=== PATIENT | female | born 1935 | race Caucasian/White ===

== ENCOUNTER → 2016-12-19 | Outpatient (CLI) | payer OTHER ==
[2016-12-19 13:35] LABS: CHOLESTEROL/HDL RATIO 4.7
== END | disposition home or self-care (01) ==
LOC: C.LABMFLN 08:23
PROVIDERS: ATTEND Family Medicine
DX: Z00.00 Encounter for general adult medical examination without abnormal findings (principal); R73.09 Other abnormal glucose; E78.5 Hyperlipidemia, unspecified; M85.80 Other specified disorders of bone density and structure, unspecified site

== ENCOUNTER 2017-09-06 06:08 | Inpatient (IN) | payer OTHER ==
[2017-08-08 13:01] VITALS: Ht 162.6 cm; Wt 96.2 kg
--- NOTE | 2017-08-08 13:39 | PAT Medication Instructions ---
Service Date Aug 08, 2017. Current Home Medication List Calcium Carbonate-Vitamin D (Calcium + D), 1 TAB PO QAM Fenofibrate (Tricor), 54 MG PO QAM Fish Oil ([place]-3), 1 CAP PO QAM Red Yeast Rice Extract (Red Yeast Rice), 1 TAB PEG QAM Medication Instructions For Your Scheduled Surgery - Hold the following medications 2 weeks prior to surgery: Fish Oil ([place]-3), 1 CAP PO QAM Red Yeast Rice Extract (Red Yeast Rice), 1 TAB PEG QAM - Hold the following medications 48 hours prior to surgery: Fenofibrate (Tricor), 54 MG PO QAM-- skip it the day of surgery and the day before - Hold the following medications the morning of surgery: Calcium Carbonate-Vitamin D (Calcium + D), 1 TAB PO QAM If you have any questions please call us at [phone] or [phone] or [phone]
[2017-08-08 15:21] LABS: BASO % 0.6 %; BASO ABS # 0.06 K/uL (0-0.2); EOS % 1.5 %; EOS ABS # 0.14 K/uL (0-0.5); HEMATOCRIT 44.6 % (37-47); IG# 0.03 K/uL (0.00-0.02); LYMPH % 23.4 %; LYMPH ABS # 2.25 K/uL (1.2-3.4); MEAN CELL VOLUME 89.7 fL (80-100); MEAN CORPUSCULAR HEMOGLOBIN 30.2 pg (25-34); MEAN CORPUSCULAR HGB CONC 33.6 g/dl (32-36); MEAN PLATELET VOLUME 11.1 fL (7.4-10.4); MONO % 7.8 %; MONO ABS # 0.75 K/uL (0.11-0.59); NEUT % 66.4 %; NEUT ABS # 6.37 K/uL (1.4-6.5); PLATELET COUNT 303 K/uL (130-400); RED CELL DISTRIBUTION WIDTH CV 14.1 % (11.5-14.5); RED CELL DISTRIBUTION WIDTH SD 46.1 fL (36.4-46.3)
[2017-08-08 15:37] LABS: PTT PATIENT 24.7 SECONDS (21.0-31.0)
--- NOTE | 2017-08-08 15:38 | DIAGNOSTIC IMAGING REPORT ---
CHEST 2 VIEWS ROUTINE HISTORY: Preop. COMPARISON: None. FINDINGS: The lungs are clear. Cardiac silhouette is normal in size. No pleural effusions. No pneumothorax. IMPRESSION: No acute process. Electronically signed by: Antonio Yang M.D. 08/08/2017 3:37 PM Dictated Date/Time: 08/08/2017 2:25 PM
[2017-08-08 16:00] LABS: ALBUMIN 3.6 gm/dl (3.4-5.0); CALCIUM 9.9 mg/dl (8.5-10.1); CREATININE 1.06 mg/dl (0.60-1.20); POTASSIUM 3.8 mmol/L (3.5-5.1)
[2017-08-09 05:55] LABS: HEMOGLOBIN A1C 5.7 % (4.5-5.6)
--- NOTE | 2017-09-05 19:26 | HISTORY & PHYSICAL EXAMINATION ---
DATE OF ADMISSION: 09/06/2017 CHIEF COMPLAINT: Chronic left knee pain. HISTORY OF PRESENT ILLNESS: This is an 81-year-old female patient of Dr. Randall'pantera complaining of chronic left knee pain, longstanding, now progressively getting worse. The patient has been diagnosed with end-stage osteoarthritis per clinical and radiographic exams. The patient has failed conservative treatment including Tylenol, anti-inflammatories, narcotics, steroids, fish oil, and intra-articular injections. She has also failed the use of a sleeve and a cane as needed. The patient has increased pain with weightbearing activities and her pain does interfere with her activities of daily living. PAST MEDICAL HISTORY: Osteoarthritis, acid reflux. SOCIAL HISTORY: Nonsmoker, nondrinker. PAST SURGICAL HISTORY: Hysterectomy. REVIEW OF SYSTEMS: The patient complains of chronic left knee pain, otherwise denies any shortness of breath, chest pain, nausea, vomiting, or any joint complaints. FAMILY HISTORY: Noncontributory. MEDICATIONS: 1. Calcium 600+D daily, fenofibrate 54 mg daily, fish oil 360 mg/1200 mg capsule daily. 2. Percocet as needed. 3. Red yeast rice 600 mg daily. ALLERGIES: No known drug allergies. PHYSICAL EXAMINATION: GENERAL: Well-developed, well-nourished 81-year-old female in no acute distress. She is alert and oriented x3 and pleasant. HEENT: Normocephalic, atraumatic. Extraocular motions are intact. Pupils are equal and reactive to light. HEART: Regular rate and rhythm, no murmurs appreciated. LUNGS: Clear. ABDOMEN: Soft, nontender, bowel sounds present. EXTREMITIES: Left knee reveals a valgus deformity. She has a limited range of motion of 0-110 degrees. She has a neutral alignment. She has medial and lateral joint line tenderness with a positive mild effusion. The patient has 4/5 strength. NEUROLOGIC: Neurovascularly, she is intact in her left lower extremity. DIAGNOSES: Left knee end-stage osteoarthritis, sciatica, acid reflux. PLAN: The patient was advised of her diagnosis. Indications, risks, benefits, postop course have all been reviewed. The patient wished to proceed with a left total knee arthroplasty. Necessary consent forms, preoperative testing, and clearances will be obtained.
[~2017-09-06] VITALS: Ht 162.6 cm; Wt 96.2 kg
[2017-09-06] VITALS (8 sets, daily range): BP systolic 127–170; BP diastolic 71–83; PULSE 65–77; TEMP 36.4–36.6; O2SAT 93–100
[~2017-09-06 06:08] MED LIST: ACETAMINOPHEN 500 MG TAB PO SCH; AMLO-110 PO; CALC600T9 PO; CEFAZOLIN 2000MG IV PUSH 15 ML IV SCH; CeleBREX 200 MG CAP PO SCH; DEXAMETHASONE 4 MG TAB PO SCH; FAMOTIDINE 20 MG TAB PO SCH; FENO54TA PO; GABAPENTIN 300 MG CAP PO SCH; LACTATED RINGER'S 1000ML 1,000 ML IV SCH; LACTATED RINGER'S 1000ML 500 ML IV SCH; METOCLOPRAMIDE HCL 10 MG TAB PO SCH; OMEG10007 PO; REDCAP2 PEG; ROPIVACAINE 5MG/ML 30 ML 150 MG, BUPIVACAINE 0.5% MPF INJ 30 ML, EpINEphrine HCL INJ 0.... INFIL SCH
[2017-09-06] MEDS ORDERED: BUPIVACAINE 0.25% 30 ML VIAL ONE (06:26)
[2017-09-06] MEDS ORDERED: BUPIVACAINE 0.5 % 5 MG/1 ML PF 10ML VIAL ONE (06:26)
[2017-09-06] MEDS: TRANEXAMIC ACID INJ 1,000 MG x 2 Bags IV SCH ×4 (06:30→08:06)
[2017-09-06] MEDS ORDERED: ORTHO JOINT ANESTHETIC ONE (07:10)
[2017-09-06] MEDS ORDERED: POVIDONE-IODINE OP SOLN 30 ML BTL ONE (07:10)
[2017-09-06] MEDS ORDERED: BACITRACIN 50000 UNIT VIAL ONE (07:11)
[2017-09-06] MEDS ORDERED: MIDAZOLAM HCL 1 MG/ML 2ML VIAL ONE (07:19)
[2017-09-06] MEDS ORDERED: FENTANYL CITRATE INJ 50 MCG/1 ML 2 ML VIAL ONE (07:20)
[2017-09-06] MEDS ORDERED: EpHEDrine SULFATE INJ 50 MG/ML AMP IV PRN (08:15)
[2017-09-06] MEDS ORDERED: ATROPINE SULFATE 0.1 MG/ML 5ML SYR IV PRN (08:15)
--- NOTE | 2017-09-06 08:27 | History & Physical Bridge Note ---
H&P Re-Evaluation Bridge Note: I have examined the patient, reviewed the History & Physical and in the interval since the performance of the History & Physical I have noted the following changes of clinical significance: No changes noted
[2017-09-06] MEDS ORDERED: PROPOFOL IV EMULSION 10 MG/ML 20 ML VIAL IV ONE (09:44)
--- NOTE | 2017-09-06 10:26 | [facility] Post Operative Brief Note ---
Immediate Operative Summary Operative Date Sep 06, 2017. Pre-Operative Diagnosis Left knee osteoarthritis Post-Operative Diagnosis Left knee osteoarthritis Procedure(s) Performed left total knee replacement,superficial wound vac Surgeon Dr. Randall Outdoor Recreation Specialist Surgeon(s) Manuel Dominique PA-C Estimated Blood Loss 5cc Findings Consistent with Post-Op Diagnosis Specimens A) Left knee- bone & tissue Drains 2 hemovac Anesthesia Type Spinal MAC Complication(s) none Disposition Disposition: Recovery Room / PACU
[2017-09-06] MEDS ORDERED: ALUMINUM/MAGNESIUM/SIMETH (MAALOX MAX) 30 ML UDC PO PRN (11:00)
[2017-09-06] MEDS ORDERED: MAGNESIUM HYDROXIDE SUSP 30 ML UDC PO PRN (11:00)
[2017-09-06] MEDS ORDERED: MoRPHine SULFATE 2 MG/ML CARP IV PRN (11:00)
[2017-09-06] MEDS ORDERED: ONDANSETRON INJ 2 MG/ML 2 ML VIAL IV PRN (11:00)
[2017-09-06] MEDS ORDERED: OXYCODONE HCL IR 5 MG TAB (IMMEDIATE RELEASE) PO PRN (11:00)
[2017-09-06] MEDS ORDERED: TRAMADOL HCL 50 MG TAB PO PRN (11:00)
[2017-09-06] MEDS ORDERED: BISACODYL 10 MG SUPP PR PRN (11:00)
--- NOTE | 2017-09-06 11:19 | DIAGNOSTIC IMAGING REPORT ---
LEFT KNEE 2 VIEWS History: Left total knee arthroplasty. Degenerative arthritis. Postop. FINDINGS: The patient is status post a left total knee arthroplasty. The hardware is intact. No fracture or dislocation. Skin lucia and surgical drains are in place. IMPRESSION: Left total knee arthroplasty. No evidence for hardware complication. Electronically signed by: Antonio Yang M.D. 09/06/2017 11:17 AM Dictated Date/Time: 09/06/2017 11:17 AM
--- NOTE | 2017-09-06 11:20 | Anesthesiology Progress Note ---
Anesthesia Post Op Note Date & Time Sep 06, 2017 at 11:20 Vital Signs Pain Intensity: 0 Vital Signs Past 12 Hours Date Time Temp Pulse Resp B/P (MAP) Pulse Ox O2 Delivery O2 Flow Rate FiO2 09/06/17 11:15 36.4 74 16 125/69 97 Nasal Cannula 2 09/06/17 11:05 68 16 134/77 100 Nasal Cannula 2 09/06/17 10:55 72 16 137/77 99 Oxymask 10 09/06/17 10:46 36.6 75 16 148/73 98 Oxymask 10 09/06/17 06:44 36.4 75 20 170/79 95 Room Air Notes Mental Status: alert / awake / arousable, participated in evaluation Pt Amnestic to Procedure: Yes Nausea / Vomiting: adequately controlled Pain: adequately controlled Airway Patency, RR, SpO2: stable & adequate BP & HR: stable & adequate Hydration State: stable & adequate Neuraxial Anesthesia: was administered, sensory block is resolving Anesthetic Complications: no major complications apparent
[2017-09-06] MEDS: D5W AND 1/2NSS + 20MEQ KCL 1,000 ML IV SCH ×2 (13:18→23:40)
[2017-09-06] MEDS: ACETAMINOPHEN 500 MG TAB PO SCH ×2 (14:02→20:28)
--- NOTE | 2017-09-06 15:05 | Medical Consult ---
Consultation Date of Consultation: Sep 06, 2017. Attending Physician: Johan Randall M.D. Reason for Consultation: medical management History of Present Illness Ms. Camarena is post op left TKA. She feels good, no pain, she is able to wiggle her toes distal to surgical site though she is still somewhat numb. Her family is seated bedside in the room. She has no concerns at this time Pmhx hysterectomy in 1976, htn (recently diagnosed), hld ROS Constitutional: no chills, aches, sweats or fever Respiratory: no sob,cough, sputum, or wheezing Cardiac: no chest pain, palpitations, edema, orthopnea or lightheadedness GI: no abdominal pain, nausea, vomiting, diarrhea or constipation : no dysuria or hesitancy Extremities: no joint pain or weakness Skin: no rash All other systems reviewed and negative Family History non contributory Social History Smoking Status: Never Smoker Smokeless Tobacco Use: No Alcohol Use: none Marital Status: Housing Status: lives with significant other Allergies Coded Allergies: No Known Allergies (Unverified , 09/06/17) Home Medications Active Reported Norvasc (Amlodipine Besylate) 5 Mg Tab 5 Mg PO QAM Red Yeast Rice (Red Yeast Rice Extract) 600 Mg Cap 1 Tab PEG QAM [place]-3 (Fish Oil) 1 Ea Cap 1 Cap PO QAM Tricor (Fenofibrate) 54 Mg Tab 54 Mg PO QAM Calcium + D (Calcium Carbonate-Vitamin D) 1 Tab Tab 1 Tab PO QAM Current Inpatient Medications Current Inpatient Medications Medications (Trade) Dose Ordered Sig/Les Route Start Time Stop Time Status Last Admin Dose Admin Cefazolin Sodium 15 ml @ 3.75 mls/ min PREOP IV 09/06/17 06:00 09/06/17 18:00 09/06/17 08:41 3.75 MLS/MIN Acetaminophen (Tylenol Tab) 1,000 mg PREOP PO 09/06/17 06:00 09/06/17 18:00 09/06/17 06:59 1,000 MG Celecoxib (CeleBREX CAP) 200 mg PREOP PO 09/06/17 06:00 09/06/17 18:00 09/06/17 06:58 200 MG Dexamethasone (Decadron Tab) 8 mg PREOP PO 09/06/17 06:00 09/06/17 18:00 09/06/17 06:58 8 MG Famotidine (Pepcid Tab) 20 mg PREOP PO 09/06/17 06:00 09/06/17 18:00 09/06/17 06:58 20 MG Gabapentin (Neurontin Cap) 300 mg PREOP PO 09/06/17 06:00 09/06/17 18:00 09/06/17 06:58 300 MG Metoclopramide HCl (Reglan Tab) 10 mg PREOP PO 09/06/17 06:00 09/06/17 18:00 09/06/17 06:59 10 MG Lactated Ringer's 1,000 ml @ 15 mls/hr Q24H IV 09/06/17 06:00 09/07/17 05:59 09/06/17 06:57 15 MLS/HR Amlodipine Besylate (Norvasc Tab) 5 mg QAM PO 09/07/17 09:00 10/07/17 08:59 Miscellaneous Information (Order Awaiting Action) 1 ea QS N/A 09/06/17 16:00 10/06/17 15:59 Morphine Sulfate (MoRPHine SULFATE INJ) 2 mg Q4HWA PRN IV 09/06/17 11:00 09/20/17 10:59 Potassium Chloride/Dextrose/ Sod Cl 1,000 ml @ 100 mls/hr Q10H IV 09/06/17 13:30 09/07/17 13:29 09/06/17 13:18 100 MLS/HR Cefazolin Sodium 2000 mg/Syringe 15 ml @ 3.75 mls/ min Q8H IV 09/06/17 16:00 09/07/17 00:03 Celecoxib (CeleBREX CAP) 200 mg BID PO 09/06/17 21:00 10/06/17 20:59 Oxycodone HCl (Roxicodone Immediate Rel Tab) 1 TABLET FOR PAIN RATING... Q4H PRN PO 09/06/17 11:00 09/20/17 10:59 Acetaminophen (Tylenol Tab) 1,000 mg Q8H PO 09/06/17 14:00 10/06/17 13:59 09/06/17 14:02 1,000 MG Magnesium Hydroxide (Milk Of Magnesia Susp) 30 ml Q6H PRN PO 09/06/17 11:00 10/06/17 10:59 Bisacodyl (Dulcolax Supp) 10 mg DAILY PRN IN 09/06/17 11:00 10/06/17 10:59 Senna (Senokot Tab) 17.2 mg HS PO 09/06/17 21:00 10/06/17 20:59 Docusate Sodium (coLACE CAP) 100 mg BID PO 09/06/17 21:00 10/06/17 20:59 Al Hydrox/Mg Hydrox/Simethicone (Maalox Max Susp) 15 ml Q4H PRN PO 09/06/17 11:00 10/06/17 10:59 Multivitamins (Multivitamin Tab) 1 tab QAM PO 09/07/17 09:00 10/07/17 08:59 Ondansetron HCl (Zofran Inj) 4 mg Q6H PRN IV 09/06/17 11:00 10/06/17 10:59 Ferrous Gluconate (Ferrous Gluconate Tab) 324 mg TIDM PO 09/06/17 17:45 10/06/17 17:44 Tramadol HCl (Ultram Tab) 1 tablet for pain rating... Q4H PRN PO 09/06/17 11:00 10/06/17 10:59 Aspirin (Ecotrin Tab) 81 mg BID PO 09/06/17 21:00 10/06/17 20:59 Physical Exam Date Time Temp Pulse Resp B/P (MAP) Pulse Ox O2 Delivery O2 Flow Rate FiO2 09/06/17 14:35 36.5 77 20 160/79 (106) 93 Room Air 09/06/17 13:34 36.6 76 19 136/75 (95) 97 Nasal Cannula 2.0 09/06/17 12:38 36.4 68 18 141/74 (96) 99 Nasal Cannula 2.0 09/06/17 12:05 36.6 65 18 131/83 (99) 97 Nasal Cannula 2.0 09/06/17 11:35 Nasal Cannula 2.0 09/06/17 11:35 100 Nasal Cannula 2.0 09/06/17 11:35 36.6 71 18 143/79 (100) 100 Nasal Cannula 2.0 09/06/17 11:15 36.4 74 16 125/69 97 Nasal Cannula 2 09/06/17 11:05 68 16 134/77 100 Nasal Cannula 2 09/06/17 10:55 72 16 137/77 99 Oxymask 10 09/06/17 10:46 36.6 75 16 148/73 98 Oxymask 10 09/06/17 06:44 36.4 75 20 170/79 95 Room Air General: no distress Eyes: normal inspection, PERLL Respiratory: chest non tender, clear to auscultation, normal breath sounds, no respiratory distress, no accessory muscle use Cardiac: regular rate and rhythm, no rub or gallop, no murmur, no edema, no jvd GI/: active bowel sounds, no abd pain or tenderness, soft, non distended Extremities: normal range of motion, normal strength, non tender, dressing dry and intact, bloody drainage in hemovac. Neuro/Psych: alert and oriented x 3, normal mood and affect Skin: normal color, dry Laboratory Results Last 24 Hours Test 09/06/17 11:04 Bedside Glucose 109 mg/dl Assessment & Plan Ms. Camarena is an 81 year old woman s/p op left knee TKA Status post left knee TKA - monitor for acute blood loss anemia - cbc am - bowel regimen, pain regimen, dvt prophylaxis per primary team HTN - continue amlodipine HLD - continue fenofibrate Supervising Note Dr. Potter I performed a history and physical examination on the patient. I reviewed above note and agree with it. I discussed plan with APC and patient. During my face to face encounter with the patient, I answered all of the patient's questions. Patient is afebrile. His hypertension appears to be controlled. Will continue home BP meds. Medicine will sign off case. Please call us for any concerns or questions
--- NOTE | 2017-09-06 15:48 | [facility] Operative Report ---
Operative Report Operative Date Sep 06, 2017. Pre-Operative Diagnosis Left knee osteoarthritis Post-Operative Diagnosis Same Procedure(s) Performed Left total knee arthroplasty application superficial wound VAC Surgeon Dr. Randall Marketing Content Specialist Surgeon(s) Manuel Dominique PA-C Estimated Blood Loss 5cc Findings Valgus knee grade 4 lateral compartment grade 3 medial patellofemoral joint Specimens A) Left knee- bone & tissue Drains 2 hemovac Anesthesia Spinal sedation regional block and orthomix Complication(s) None Disposition Recovery Room / PACU Indications 81-year-old female chronic pain osteoarthritis left knee [id number] lateral compartment failed conservative management. Description of Procedure Patient taken to the operating room the size under spinal sedation regional block anesthesia. Patient was placed supine on the operating table. A pneumatic tourniquet was placed about the left upper thigh. The left lower extremity was prepped and draped in sterile fashion. Knee exam demonstrated valgus knee [id number] crepitation laterally no pseudolaxity patellofemoral crepitation -5 -110 range of motion. The leg was elevated exsanguinated with an Esmarch bandage and hematocrit is raised to 325 millimeters of mercury. Skin incised sharply in longitudinal fashion. Substance flaps elevated. Incision was made through the medial retinaculum extending up in the midst of the quadriceps tendon and down to the medial tibial tubercle. Intra-articular findings demonstrated valgus knee grade 4 lateral compartment DJD grade 3 medial facet patellar DJD.. The Spongecell triathlon total knee arthroplasty system was used. To expose the knee the infrapatellar fat pad was resected. The meniscal remnants and cruciate ligaments were resected. The anterior fat pad over the femur in the area of the anterior flange of the femoral component was resected. Lateral synovial bands release. The femur was exposed. An intramedullary drill hole was made into the canal. A guidewire was placed. Distal femoral cutting guide was adjusted to resect a 6 degree valgus cut with 8 millimeters distal femur resected. The knee was extended and a subperiosteal peel lateral release was performed around the patella. Patella with was measured and with was reproduced using a freehand cut technique and a 31 x 9 patella was chosen. The drill holes were made and the excess lateral facet was beveled off to prevent any impingement. Attention was taken back to the femur which was exposed with retractors and the femoral sizing guide was pinned in position. The drill holes were placed in 3 of external rotation to match epicondylar axis. Femur sized for a 4 component. The 4-in-1 cutting block was placed and then the anterior posterior and chamfer cuts are made. The tibia was then subluxed. The external tibial cutting guide was just to make a perpendicular cut to the long axis of the tibia below the most deficient bone loss side. A lamina development administrator was used and the flexion extension gaps were balanced. This required some release of the lateral capsule upper IT band on tibia. All posterior osteophytes removed. All meniscal remnants were resected. The tibia exposed and the trial tibial component size 3 was actually rotate line of the tibial tubercle and pinned in position. The punch for stem was used. The notch cutting device was centered appropriately and the femoral notch cut was made. The femoral trial was inserted. Trial tibial inserts placed and size 13 gave balanced ligaments through flexion extension. Patella tracking was assessed. The patella tracked centrally. The trial components were then removed and the orthomix anesthetic cocktail was injected per protocol. The knee was then copiously irrigated post lavage antibiotic solution. Final components were then cemented with Simplex cement. Final components were S 31 mm 9 patella for left posterior stabilized femoral and 3 primary tibial baseplate and 3 x 13 mm X3 posterior stabilized tibial bearing. While cement cured Betadine soak was used per protocol. After cement cured further pulsatile lavage irrigation performed and 2 Hemovac drains were brought out laterally. The quadriceps tendon and neck and close them to figure of 8 #1 Vicryl sutures. The knee was taken through full range of motion and the repair was secure. The septations were closed with 2-0 Vicryl sutures. Skin was closed with lucia. Sterile dressings were applied. Patient procedure well. Manuel MONTES DE OCA was my physician sales office assistant who assisted in patient positioning prepping draping leg positioning soft tissue retractions for management and participated in the closing and will participate in postoperative care patient. I attest to the content of the Intraoperative Record and any orders documented therein. Any exceptions are noted below.
[2017-09-06] MEDS: CEFAZOLIN IV 2,000 MG in SYRINGE 0 ML IV SCH ×2 (16:26→23:53)
[2017-09-06] MEDS: FERROUS GLUCONATE 324 MG TAB PO SCH (17:50)
[2017-09-06] MEDS: CeleBREX 200 MG CAP PO SCH (20:26)
[2017-09-06] MEDS: DOCUSATE SODIUM 100 MG CAP PO SCH (20:26)
[2017-09-06] MEDS: SENNA 8.6 MG TAB PO SCH (20:27)
[2017-09-06] MEDS: ASPIRIN 81 MG ECTAB PO SCH (20:28)
[2017-09-07 03:03] VITALS: BP 135/79; PULSE 70; TEMP 36.6; O2SAT 96
[2017-09-07] MEDS: ACETAMINOPHEN 500 MG TAB PO SCH ×3 (05:43→21:19)
[2017-09-07 06:54] VITALS: BP 143/77; PULSE 69; TEMP 36.5; O2SAT 96
[2017-09-07 07:01] LABS: HEMATOCRIT 39.1 % (37-47); HEMOGLOBIN 13.1 g/dL (12.0-16.0); MEAN CELL VOLUME 88.1 fL (80-100); MEAN CORPUSCULAR HEMOGLOBIN 29.5 pg (25-34); MEAN CORPUSCULAR HGB CONC 33.5 g/dl (32-36); MEAN PLATELET VOLUME 10.9 fL (7.4-10.4); PLATELET COUNT 266 K/uL (130-400); RED CELL DISTRIBUTION WIDTH CV 13.7 % (11.5-14.5); RED CELL DISTRIBUTION WIDTH SD 44.2 fL (36.4-46.3); WHITE BLOOD COUNT 21.71 K/uL (4.8-10.8)
[2017-09-07 07:37] LABS: CALCIUM 8.9 mg/dl (8.5-10.1); CREATININE 1.04 mg/dl (0.60-1.20); POTASSIUM 4.2 mmol/L (3.5-5.1)
[2017-09-07] MEDS: FERROUS GLUCONATE 324 MG TAB PO SCH ×3 (08:44→18:17)
[2017-09-07] MEDS: CeleBREX 200 MG CAP PO SCH ×2 (08:45→21:17)
[2017-09-07] MEDS: DOCUSATE SODIUM 100 MG CAP PO SCH ×2 (08:45→21:17)
[2017-09-07] MEDS: ASPIRIN 81 MG ECTAB PO SCH ×2 (08:45→21:18)
[2017-09-07] MEDS: MULTIVITAMIN TAB PO SCH (08:46)
[2017-09-07 08:47] VITALS: BP 143/78
[2017-09-07] MEDS: AMLODIPINE BESYLATE 5 MG TAB PO SCH (08:48)
[2017-09-07] MEDS: D5W AND 1/2NSS + 20MEQ KCL 1,000 ML IV SCH (09:55)
--- NOTE | 2017-09-07 10:07 | Orthopedic Progress Note ---
Orthopedic Progress Note Date of Service Sep 07, 2017. Subjective Post OP Day: 1 Reports: feeling well, complaints, chest pain, SOB, nausea / vomiting, light headedness, calf pain, pain controlled w PO medications Objective calves soft nontender, N/V intact, capillary refill less than 2 sec., dressing C /D/I, A&O x3, toes mobile Date Time Temp Pulse Resp B/P (MAP) Pulse Ox O2 Delivery O2 Flow Rate FiO2 09/07/17 08:47 143/78 (99) 09/07/17 07:40 Room Air 09/07/17 06:54 36.5 69 17 143/77 (99) 96 Room Air 09/07/17 03:03 36.6 70 16 135/79 (97) 96 Room Air 09/07/17 00:00 Room Air 09/06/17 23:26 36.4 76 16 131/74 (93) 94 Room Air 09/06/17 19:40 36.6 76 18 127/71 (89) 95 Room Air 09/06/17 15:25 Room Air 09/06/17 14:35 36.5 77 20 160/79 (106) 93 Room Air 09/06/17 13:34 36.6 76 19 136/75 (95) 97 Nasal Cannula 2.0 09/06/17 12:38 36.4 68 18 141/74 (96) 99 Nasal Cannula 2.0 09/06/17 12:05 36.6 65 18 131/83 (99) 97 Nasal Cannula 2.0 09/06/17 11:35 Nasal Cannula 2.0 09/06/17 11:35 100 Nasal Cannula 2.0 09/06/17 11:35 36.6 71 18 143/79 (100) 100 Nasal Cannula 2.0 09/06/17 11:15 36.4 74 16 125/69 97 Nasal Cannula 2 09/06/17 11:05 68 16 134/77 100 Nasal Cannula 2 09/06/17 10:55 72 16 137/77 99 Oxymask 10 09/06/17 10:46 36.6 75 16 148/73 98 Oxymask 10 Laboratory Results 24 Hours: Test 09/07/17 06:33 Hematocrit 39.1 % Hemoglobin 13.1 g/dL Assessment & Plan Assessment: POD #1, LEFT TKA Plan: PT/ OT DVT PROPH- ASA D/C PLANNING- [facility] PER MEDICINE Inhouse Planning Pain Management: Celebrex, Ultram, Morphine, PO Tylenol, Oxy IR DVT Prophylaxis: TEDs, SCDs, ASA Discharge Planning Discharge Planning: long-term facility Pain Management: Celebrex, PO Tylenol, Oxy IR DVT Prophylaxis: TEDs, ASA Therapy: Physical Therapy, Occupational Therapy
--- NOTE | 2017-09-07 14:23 | Anesthesiology Progress Note ---
Anesthesia Post Op Note Date & Time Sep 07, 2017 at 14:22 Vital Signs Pain Intensity: 0.0 Vital Signs Past 12 Hours Date Time Temp Pulse Resp B/P (MAP) Pulse Ox O2 Delivery O2 Flow Rate FiO2 09/07/17 08:47 143/78 (99) 09/07/17 07:40 Room Air 09/07/17 06:54 36.5 69 17 143/77 (99) 96 Room Air 09/07/17 03:03 36.6 70 16 135/79 (97) 96 Room Air Notes Mental Status: alert / awake / arousable, participated in evaluation Pt Amnestic to Procedure: Yes Nausea / Vomiting: adequately controlled Pain: adequately controlled Airway Patency, RR, SpO2: stable & adequate BP & HR: stable & adequate Hydration State: stable & adequate Neuraxial Anesthesia: sensory block resolved Anesthetic Complications: no major complications apparent
[2017-09-07 15:10] VITALS: BP 174/76; PULSE 82; TEMP 36.5; O2SAT 96
[2017-09-07 16:05] VITALS: BP 143/83
[2017-09-07] MEDS: SENNA 8.6 MG TAB PO SCH (21:18)
[2017-09-07 23:09] VITALS: BP 151/75; PULSE 76; TEMP 36.5; O2SAT 92
[2017-09-08] MEDS: ACETAMINOPHEN 500 MG TAB PO SCH ×3 (06:31→21:30)
[2017-09-08 06:35] VITALS: BP_SYST 182; BP_SYST 186; BP_DIAS 83; PULSE 77; TEMP 36.9; O2SAT 94
[2017-09-08] MEDS: AMLODIPINE BESYLATE 5 MG TAB PO SCH (06:43)
[2017-09-08 07:13] VITALS: BP 172/90
[2017-09-08] MEDS: DOCUSATE SODIUM 100 MG CAP PO SCH ×2 (07:14→21:29)
[2017-09-08] MEDS: FERROUS GLUCONATE 324 MG TAB PO SCH ×3 (07:14→17:54)
[2017-09-08] MEDS: CeleBREX 200 MG CAP PO SCH ×2 (07:15→21:30)
[2017-09-08] MEDS: MULTIVITAMIN TAB PO SCH (07:15)
[2017-09-08] MEDS: ASPIRIN 81 MG ECTAB PO SCH ×2 (07:15→21:29)
[2017-09-08] MEDS: FENOFIBRATE PO SCH (07:16)
[2017-09-08 08:10] VITALS: BP 164/83
--- NOTE | 2017-09-08 11:05 | Orthopedic Progress Note ---
Orthopedic Progress Note Date of Service Sep 08, 2017. Subjective Post OP Day: 2 Reports: feeling well, pain controlled w PO medications, Denies: complaints, chest pain, SOB, nausea / vomiting, light headedness, calf pain Objective calves soft nontender, N/V intact, capillary refill less than 2 sec., dressing C /D/I, A&O x3, toes mobile PROVENA IN TACT Date Time Temp Pulse Resp B/P (MAP) Pulse Ox O2 Delivery O2 Flow Rate FiO2 09/08/17 08:10 164/83 (110) 09/08/17 07:13 172/90 (117) 09/08/17 07:10 Room Air 09/08/17 06:35 36.9 77 16 182/83 (116) 94 Room Air 186/83 (117) 09/08/17 00:25 Room Air 09/07/17 23:09 36.5 76 17 151/75 (100) 92 Room Air 09/07/17 16:05 143/83 (103) 09/07/17 15:10 36.5 82 18 174/76 (108) 96 Room Air 09/07/17 14:50 Room Air Assessment & Plan Assessment: POD #2, LEFT TKA Plan: PT/ OT DVT PROPH- ASA D/C PLANNING- DENIED [facility], AWAITING PLACEMENT FROM [facility] VS [facility], EARLIEST MONDAY. PER MEDICINE Inhouse Planning Pain Management: Celebrex, Ultram, Morphine, PO Tylenol, Oxy IR DVT Prophylaxis: TEDs, SCDs, ASA Discharge Planning Discharge Planning: half-way facility Pain Management: Celebrex, PO Tylenol, Oxy IR DVT Prophylaxis: TEDs, ASA Therapy: Physical Therapy, Occupational Therapy
[2017-09-08 15:03] VITALS: BP 158/83; PULSE 75; TEMP 36.4; O2SAT 96
[2017-09-08] MEDS: SENNA 8.6 MG TAB PO SCH (21:29)
[2017-09-08 23:07] VITALS: BP 157/74; PULSE 80; TEMP 36.6; O2SAT 93
[2017-09-09] MEDS: ACETAMINOPHEN 500 MG TAB PO SCH (05:25)
[2017-09-09 06:40] VITALS: BP 161/85; PULSE 73; TEMP 36.7; O2SAT 95
--- NOTE | 2017-09-09 07:48 | Orthopedic Progress Note ---
Orthopedic Progress Note Date of Service Sep 09, 2017. Subjective Post OP Day: 3 Reports: feeling well, pain controlled w PO medications, Denies: complaints, chest pain, SOB, nausea / vomiting, light headedness, calf pain Objective calves soft nontender, N/V intact, capillary refill less than 2 sec., dressing C /D/I (prevena intact), A&O x3, toes mobile Date Time Temp Pulse Resp B/P (MAP) Pulse Ox O2 Delivery O2 Flow Rate FiO2 09/09/17 06:40 36.7 73 16 161/85 (110) 95 Room Air 09/08/17 23:50 Room Air 09/08/17 23:07 36.6 80 16 157/74 (101) 93 Room Air 09/08/17 16:45 Room Air 09/08/17 15:03 36.4 75 16 158/83 (108) 96 Room Air 09/08/17 08:10 164/83 (110) Assessment & Plan Assessment: POD #3, LEFT TKA Plan: PT/ OT DVT PROPH- ASA D/C PLANNING- plan for [facility] after PT today PER MEDICINE Discharge Planning Discharge Planning: [facility] facility Pain Management: Celebrex, PO Tylenol, Oxy IR DVT Prophylaxis: TEDs, ASA Therapy: Physical Therapy, Occupational Therapy
--- NOTE | 2017-09-09 07:50 | Discharge Instructions ---
Discharge Instructions Date of Service Sep 09, 2017. Admission Reason for Admission: Left Knee Osteoarthritis Discharge Discharge Diagnosis / Problem: left total knee replacement Discharge Goals Goal(s): Decrease discomfort, Improve function, Increase independence Activity Recommendations Activity Level: Up [place] Therapies: Physical Therapy Weightbearing Status: Left weightbearing (as tolerated) . Additional Information Patient informed of condition: Yes Advance Directives: No DNR: No Level of Care: Skilled Communicable Disease: No Prognosis: Stable Instructions / Follow-Up Instructions / Follow-Up ACTIVITY RECOMMENDATIONS: SELF CARE INSTRUCTIONS AFTER TOTAL KNEE REPLACEMENT A. You may need to continue a physical therapy program after discharge from the hospital. There are several options available to you. Your doctor will assist you in selecting the best one for you. 1. An out-patient facility 2 to 3 times a week for therapy or home therapy. 2. Continue working on all exercises taught to you in the hospital. Your goals should be to increase bending of your knee to 90 degrees and beyond and to fully straighten your knee. B. You may progress at your own pace from walking with a walker or crutches to a cane; then to no assistive devices. C. Make walking a part of your daily routine. Be up as much as comfortable with rest periods throughout the day. Rest with leg elevation is very important. Use the ice wrap frequently for the first 3-4 weeks. D. There are no restrictions on activities. You may ride in a car, shop, participate in claims service adjustor and all social activities. E. Wear the long elastic stockings (KAELA hose) 20 hours a day for 2 weeks after surgery. They can be removed several times a day for laundering and for a bath. F. You may shower, no tub baths until cleared by your doctor. SPECIAL CARE INSTRUCTIONS: VERY IMPORTANT TO READ AND REVIEW A. There are a few signs you need to watch for after you are home. Call [facility] if you notice any of the followin. Increased severe knee pain. Some pain is expected especially when you exercise. 2. Increased swelling in your leg or knee; pain or swelling of the calf muscle in either lower leg. 3. Any fluid drainage from the incision. 4. Shortness of breath or chest pain. B. Please call [facility] at if you have any concerns or questions about your operation or recovery. The doctor or his nurse will return your call promptly. C. You must take antibiotics before dental work, bladder, bowel or other surgery. Your doctor will provide you with a permanent care to carry describing this precaution. IMPORTANT: * REMEMBER TO TAKE ASPIRIN, 81 MG, TWICE DAILY FOR 4 WEEKS UNLESS OTHERWISE DIRECTED. THIS IS YOUR BLOOD THINNER. * HIGH RISK PATIENTS MAY BE PRESCRIBED A STRONGER BLOOD THINNER. THIS WILL BE PROVIDED AT DISCHARGE. * CALL IF INCREASED PAIN, REDNESS, DRAINAGE OR FEVER GREATER THAT 101. * WEAR KAELA HOSE 20 HOURS PER DAY FOR 2 WEEKS. * Prevena- This is a large suction dressing covering your incision. This will help pull any excess drainage from the wound and allow your incision to heal properly. You may shower with this if you can keep the unit outside of the shower. If any bleeding or leakage is noted please call your doctor's office. This will remain on your incision for 7 days and then should be removed. This can be done yourself or by the home nursing staff if applicable. The entire unit is disposable once removed. Once removed, keep incision clean and dry. If redness or drainage is noted, please call your surgeon. FOLLOW UP VISIT: If appointment is not already scheduled: Please call [facility] to make a follow-up appointment for 2 weeks after your surgery at . Current Hospital Diet Patient's current hospital diet: Regular Diet Discharge Diet Recommended Diet: Regular Diet Procedures Procedures Performed: left total knee replacement,superficial wound vac Pending Studies Studies pending at discharge: no Physician Orders On Transfer Dressing Changes: Prevena- This is a large suction dressing covering your incision. This will help pull any excess drainage from the wound and allow your incision to heal properly. You may shower with this if you can keep the unit outside of the shower. If any bleeding or leakage is noted please call your doctor's office. This will remain on your incision for 7 days and then should be removed. This can be done yourself or by the home nursing staff if applicable. The entire unit is disposable once removed. Once removed, keep incision clean and dry. If redness or drainage is noted, please call your surgeon. Laboratory Results Hemoglobin A1c Test 08/08/17 13:49 Range/Units Estimated Average Glucose 117 mg/dl Hemoglobin A1c 5.7 H 4.5-5.6 % Medical Emergencies . Who to Call and When: Medical Emergencies: If at any time you feel your situation is an emergency, please call 911 immediately. . Non-Emergent Contact Non-Emergency issues call your: Primary Care Provider, Surgeon . . "Provider Documentation" section prepared by Madi Yoo. . Core Measure Problem Core Measures: None [place] Drug Monitoring Program Search Results: patient reviewed within database, no issues identified
[2017-09-09] MEDS ORDERED: RXC5 PO (07:51)
[2017-09-09] MEDS ORDERED: CLB200 PO (07:51)
[2017-09-09] MEDS ORDERED: CLC100 PO (07:51)
[2017-09-09] MEDS ORDERED: ONDA-170 PO (07:51)
[2017-09-09] MEDS ORDERED: ASPI-320 PO (07:51)
[2017-09-09] MEDS ORDERED: ACET-24 PO (07:51)
[2017-09-09] MEDS: DOCUSATE SODIUM 100 MG CAP PO SCH (09:15)
[2017-09-09] MEDS: MULTIVITAMIN TAB PO SCH (09:15)
[2017-09-09] MEDS: FERROUS GLUCONATE 324 MG TAB PO SCH ×2 (09:15→12:50)
[2017-09-09] MEDS: CeleBREX 200 MG CAP PO SCH (09:16)
[2017-09-09] MEDS: ASPIRIN 81 MG ECTAB PO SCH (09:16)
[2017-09-09] MEDS: FENOFIBRATE PO SCH (09:16)
[2017-09-09] MEDS: AMLODIPINE BESYLATE 5 MG TAB PO SCH (09:16)
[2017-09-09 12:38] VITALS: BP 161/85; PULSE 73; TEMP 36.7; O2SAT 95
--- NOTE | 2017-09-11 16:30 | DISCHARGE SUMMARY ---
DISCHARGE DIAGNOSIS: Degenerative joint disease, left knee. SECONDARY DIAGNOSIS: Gastroesophageal reflux disease. CONSULTS: JIL Mock/Vincent Potter MD COMPLICATIONS: None. PROCEDURES: Left total knee arthroplasty performed by Dr. Randall on 09/06/2017. BRIEF HISTORY: As dictated in the history and physical. HOSPITAL SUMMARY: The patient was admitted on the above-noted date and had the above-noted surgery performed which she tolerated well. [facility] service was consulted for postoperative medical coverage and on the first postoperative day, she was feeling well. Calves were soft, nontender. Neurovascularly intact. Dressings clean, dry and intact. Toes were mobile. Vital signs were stable. She is afebrile. Hemoglobin was 13.1 and she was started on physical therapy protocol and continued on DVT prophylaxis and pain management. Plans were for [facility] facility when stable for discharge. By her second postoperative day, she was feeling well and pain was controlled. She had no complaints. Calves were soft and nontender. Neurovascularly intact. Dressings clean, dry and intact. Toes are mobile. Prevena dressing was being used and was intact and functioning well. Vital signs ranged with her systolic blood pressures from 143 to 182 which was being treated by medicine service. She was continued on her PT protocol and was awaiting placement to a different shelter facility since she was denied [facility]. The rest of her stay was essentially uneventful and by 09/09/2017, she was feeling well. She had no complaints. Prevena was intact. Toes were mobile. Calves were soft and nontender. Neurovascularly intact. Vital signs remaining stable. At the last moment, a bed did become available for the patient at [facility] and she was discharged to [facility] on 09/09/2017. For further review, please see chart. LAB AND X-RAY DATA: As per chart. DISCHARGE INSTRUCTIONS: The patient was discharged to [facility] on 09/09/2017. Diet: Regular. Activity: Weightbearing as tolerated in left lower extremity. The patient to have physical therapy. Follow TKA instruction sheet and special care instructions and follow up with Dr. Randall in 2 weeks. DISCHARGE MEDICATIONS: Acetaminophen 1000 mg p.o. q. 8 hours, aspirin 81 mg p.o. b.i.d. for 30 days, Celebrex 200 mg p.o. b.i.d. for 30 days, Colace 100 mg p.o. b.i.d. for 10 days, Zofran 8 mg p.o. q. 8 hours p.r.n. nausea, oxycodone 5-10 mg p.o. q. 4 hours p.r.n. Resume home meds as listed and stop taking fish oil and red yeast rice extract.
== END 2017-09-09 13:06 | DRG 470 ==
LOC: C.ACU 06:08 → C.3E 06:09 → ENRESERV 11:10
PROVIDERS: ADMIT Orthopaedic Surgery Sports Medicine; ATTEND Orthopaedic Surgery Sports Medicine
PROC: 0SRD0J9 Replacement of Left Knee Joint with Synthetic Substitute, Cemented, Open Approach (ICD-10-PCS; principal; 2017-09-06 08:45)
DX: M17.12 Unilateral primary osteoarthritis, left knee (principal); I89.0 Lymphedema, not elsewhere classified; I10 Essential (primary) hypertension; E78.5 Hyperlipidemia, unspecified; K21.9 Gastro-esophageal reflux disease without esophagitis; E66.9 Obesity, unspecified; Z68.36 Body mass index [BMI] 36.0-36.9, adult; Z79.899 Other long term (current) drug therapy; Z90.710 Acquired absence of both cervix and uterus

== ENCOUNTER → 2017-12-19 | Outpatient (CLI) | payer OTHER ==
[~2017-12-19] MED LIST changes: +ACET-24 PO; -ACETAMINOPHEN 500 MG TAB PO SCH; -AMLO-110 PO; +AMLO5TAB3 PO; +ASPI-320 PO; -CEFAZOLIN 2000MG IV PUSH 15 ML IV SCH; +CLB200 PO; +CLC100 PO; -CeleBREX 200 MG CAP PO SCH; -DEXAMETHASONE 4 MG TAB PO SCH; -FAMOTIDINE 20 MG TAB PO SCH; -GABAPENTIN 300 MG CAP PO SCH; -LACTATED RINGER'S 1000ML 1,000 ML IV SCH; -LACTATED RINGER'S 1000ML 500 ML IV SCH; -METOCLOPRAMIDE HCL 10 MG TAB PO SCH; -OMEG10007 PO; +ONDA-170 PO; -REDCAP2 PEG; -ROPIVACAINE 5MG/ML 30 ML 150 MG, BUPIVACAINE 0.5% MPF INJ 30 ML, EpINEphrine HCL INJ 0.... INFIL SCH; +RXC5 PO
== END | disposition home or self-care (01) ==
LOC: C.LABMFLN 07:18
PROVIDERS: ATTEND Family Medicine
DX: E78.5 Hyperlipidemia, unspecified (principal); R73.09 Other abnormal glucose